=== PATIENT | female | born 1960 ===

== ENCOUNTER 2016-12-31 08:08 | Day surgery (SDC) | payer SELFPAY ==
[2016-12-31] MEDS ORDERED: Lactated Ringer's 500 ML IV ONE (10:32)
[2016-12-31] MEDS ORDERED: Propofol 10 mg/ml Inj (20 ML) ONE (12:05)
[2016-12-31 12:45] VITALS: BP 100/63; PULSE 54; RESP 13; TEMP 97.9; O2SAT 100
== END 2016-12-31 13:02 | disposition home or self-care (01) ==
LOC: H.ENDO 08:08
PROVIDERS: ATTEND Internal Medicine Gastroenterology
DX: Z12.11 Encounter for screening for malignant neoplasm of colon (principal); K64.8 Other hemorrhoids; K57.30 Diverticulosis of large intestine without perforation or abscess without bleeding
CPT/HCPCS: 45378; J2001; J2704; J7120